=== PATIENT | male | born 1970 | race Caucasian/White ===

== ENCOUNTER 2021-05-04 13:06 | Emergency (ER) | payer BC, SELFPAY ==
[2021-05-04 13:07] VITALS: BP 112/83; PULSE 89; RESP 16; TEMP 36.4; O2SAT 98; BMI 29.0
[2021-05-04 13:54] LABS: Absolute Lymphocyte Count 1.26 X10^3/uL (0.83-4.51); Absolute Neutrophil Count 5.1 X10^3/uL (2.0-7.7); Basophil# 0.04 X10^3/uL; Basophil% 0.6 % (0-1); Eosinophil# 0.03 X10^3/uL; Eosinophils% 0.4 % (0-5); Hematocrit 55.1 % (40-54); Lymphocyte # 1.26 X10^3/ul (0.83-4.51); Mean Corp Hgb Conc 34.1 g/dL (32-36); Mean Corpuscular Hgb 30.7 pg (27.0-32.0); Mean Corpuscular Volume 89.9 fL (80-94); Mean Platelet Vol. 11.2 fl (6.2-12.0); Monocyte# 0.59 X10^3/uL; Monocyte% 8.4 % (0-10); NRBC Flagged by Analyzer 0 % (0-5); Neutrophil # 5.05 X10^3/uL (2.7-7.7); Neutrophil % 72.3 % (47-70); Platelet Count 206 K/mm3 (150-450); RBC Distribution Width SD 39.6 fl (35.1-43.9); Red Blood Count 6.13 M/mm3 (4.6-6.2)
[2021-05-04 13:57] LABS: Anion Gap 7 (5-15); BUN 10 mg/dL (7-18); Calcium,Total 9.2 mg/dL (8.5-10.1); Chloride 103 mmol/L (98-107); Creatinine, Serum 1.11 mg/dL (0.70-1.30); EST Glomerular Filtration Rate 75 mL/min (>60); Est Glom Filt Rate - Afr Amer 90 mL/min (>60); Estimated Creatinine Clearance 89.98 ml/min; Glucose 120 mg/dL (74-106); Potassium 3.7 mmol/L (3.5-5.1); Sodium Level 138 mmol/L (136-145)
[2021-05-04 14:00] LABS: Hemoglobin 18.8 g/dL (13.0-16.5)
--- NOTE | 2021-05-04 17:23 | CT_ITS ---
STUDY: CT Abdomen And Pelvis W/O Contrast Injection 05/04/2021 6:17 PM REASON FOR EXAM: Male, 51 years old. Technologist Notes Other, FATIGUE,WEAKNESS,NAUSEA llq pain TECHNIQUE: Transaxial images were obtained without oral contrast, and without intravenous contrast. Individualized dose optimization techniques were used for this CT. COMPARISON: None. FINDINGS: The visualized lung bases are unremarkable. The visualized portions of the heart are within normal limits. Normal liver. Normal gallbladder and extrahepatic biliary system. Normal spleen. Normal pancreas. Normal bilateral adrenal glands. No acute findings of the right kidney. No acute findings of the left kidney. Normal visualized stomach. Normal small intestine. Stool throughout the colon. There is non-visualization of the appendix. There are no acute findings of the abdominal aorta. Normal inferior vena cava. Subcentimeter mesenteric lymph nodes. Normal urinary bladder. There are prostatic calcifications. Normal abdominal wall. There are diffuse degenerative changes of the visualized lumbar spine. IMPRESSION: (NOT LISTED IN ORDER OF SIGNIFICANCE) There are no acute findings. Other findings as above. Electronically Signed: Juno Bautista MD at 18:19 EST , Service support , CT/Abdomen/Pelvis without Cont
[2021-05-04 17:49] VITALS: BP 135/78; PULSE 71; RESP 18; O2SAT 96
[2021-05-04 18:00] LABS: Bacteria 0 SEEN /hpf (None Seen); Mucous, Urine 0 SEEN /hpf (<or=2+); Red Blood Cells-Urine 0 SEEN /hpf (0-5); Squamous Epithelial Cells - UA 0 SEEN /hpf (0-5); White Blood Cells 0 SEEN /hpf (0-5)
[2021-05-04 18:01] LABS: Color, Urine Yellow (Yellow); Glucose, Dipstick Normal (Normal); Ketone-Dipstick Negative (Negative); Leukocyte Esterase-Dipstick Negative /ul (Negative); Nitrite-Dipstick Negative (Negative); Occult Blood-Urine Negative /ul (Negative); Protein-Dipstick Negative (Negative); Urine Bilirubin Dipstick Negative (Negative); Urine Clarity Clear (Clear); Urine Urobilinogen Normal (Normal)
--- NOTE | 2021-05-04 18:02 | ED.VIS.GI ---
HPI HPI - GI History of Present Illness Chief Complaint: Abd Pain Informant: patient Abdominal Pain/Flank Pain Onset: Days (3-4) Context: Gradual Onset Timing: Continuous Quality: Aching Location: LLQ Current Severity: Moderate Maximum Severity: Moderate Worsened by: Nothing Relieved by: Nothing Nausea/Vomiting/Emesis GI Symptom: Positive for Nausea; Negative for Vomiting Onset: Yesterday Diarrhea/Melena/Hematochezia GI Symptom: Positive for Diarrhea and Melena (today once, after taking a bunch of pepto bismol yesterday); Negative for Hematochezia Associated Symptoms Associated Symptoms: Positive for Dysuria (x 3 weeks); Negative for Frequency, Hematuria and Urgency Narrative Narrative: Patient presenting with abdominal pain in his left lower quadrant without radiation for the past 3 to 4 days, some nausea 1 point but not today, he is concerned that it is related to urethral dysuria that he has been having for the past 3 weeks since he was masturbating with a toy that he has subsequently discarded. He said he had some fevers a couple days ago when his abdominal pain started, but has had none since. Patient states not sexually active for the past 7 years or so. [facility] Medical History Fibromyalgia Rheumatoid arthritis Home Medications doxycycline monohydrate 100 mg PO BID #14 capsule 05/04/21 [Rx Last Taken Unknown] Allergy/AdvReac Type Severity Reaction Status Date / Time No Known Allergies Allergy Verified 05/04/21 13:10 Social History Smoking Status: Current every day smoker tobacco type: cigarettes ROS ROS ED Constitutional Constitutional ED: Denies chills or fever(s) Eyes Eyes: Denies change in vision or diplopia ENT ENT ED: Denies rhinorrhea or sore throat Cardiovascular Cardiovascular: Denies chest pain or palpitations Respiratory/Chest Respiratory/Chest: Denies cough or dyspnea Gastrointestinal Gastrointestinal: Reports abdominal pain and nausea; Denies diarrhea or vomiting Genitourinary Genitourinary ED: Reports dysuria; Denies hematuria Musculoskeletal Musculoskeletal: Reports arthralgias, back pain and other Details: Chronic low back pain unchanged ; Denies neck pain Integumentary Denies abscess or rash Neurologic Neurologic: Denies headache(s), paresthesias or weakness Psychiatric Psychiatric: Denies anxiety or suicidal thoughts EXAM Physical Exam Const Vital Signs: 05/04/21 13:07 05/04/21 17:49 Temperature 97.6 F L Temperature Source Temporal Pulse Rate 89 71 Respiratory Rate 16 18 Blood Pressure 112/83 H 135/78 H Blood Pressure Mean 92 97 Pulse Ox 98 96 Oxygen Delivery Method Room Air Room Air Positive well nourished and well developed Constitutional Narrative: Well-appearing in no distress General Appearance ED: well developed and NAD HEENT Reports moist mucous membranes normocephalic and atraumatic Eyes PERRL and EOMs intact bilaterally Neck full ROM and supple Resp normal respiratory effort and clear to auscultation bilaterally Cardio regular rate, regular rhythm and no murmurs GI non-distended GI Narrative: Point tender distal left lower quadrant, no guarding or rebound tenderness, no other areas of tenderness. Auscultation: normoactive bowel sounds Palpation: soft Back/Spine no CVA tenderness General Back: other FROM Extremity normal to inspection General Extremety ED: Negative for edema, pulses abnormal or tenderness General Extremity: Negative for edema or pulses abnormal Neuro oriented x3, CN's II-XII intact bilaterally and no sensory deficits noted Sensorium / Orientation: awake and alert Motor Exam: strength 5/5 throughout Skin no rashes or lesions noted and no wounds MDM MDM MDM Narrative Medical decision making narrative: Labs normal, Covid swab was sent due to his fevers, that is negative. He does not have any respiratory symptoms so I do not think he needs a PCR right now. His urinalysis shows no signs of any infection. Given that, his abdominal pain is probably unrelated, and he probably has a urethritis, for which I think it would be reasonable to put him on a week of doxy to see if that helps. He has had no discharge from his urethral meatus or testicular pain. Did do a CT of the abdomen and pelvis, no stone, no diverticulitis, no other acute abnormality. Reassured and discharged home with the doxycycline and advised to follow-up with primary care. Lab Data Attestation: I reviewed the patient's lab results. Labs: Laboratory Results - last 24 hr 05/04/21 05/04/21 05/04/21 13:25 13:30 13:30 WBC 7.0 RBC 6.13 Hgb 18.8 H* Hct 55.1 H MCV 89.9 MCH 30.7 MCHC 34.1 RDW Std Deviation 39.6 RDW Coeff of [place] 12.0 Plt Count 206 MPV 11.2 Immature Gran % (Auto) 0.300 Neut % (Auto) 72.3 H Lymph % (Auto) 18.0 L [place] % (Auto) 8.4 Eos % (Auto) 0.4 Baso % (Auto) 0.6 Absolute Neuts (auto) 5.1 Absolute Lymphs (auto) 1.26 Nucleated RBC % 0 [address] Path Review May foll Sodium 138 Potassium 3.7 Chloride 103 Carbon Dioxide 28.0 Anion Gap 7 BUN 10 Creatinine 1.11 Estim Creat Clear Calc 89.98 Est GFR (MDRD) Af Amer 90 Est GFR (MDRD) Non-Af 75 BUN/Creatinine Ratio 9.0 L Glucose 120 H Calcium 9.2 Urine Color Yellow Urine Clarity Clear Urine pH 6.0 Ur Specific [place] 1.010 Urine Protein Negative Urine Glucose (UA) Normal Urine Ketones Negative Urine Occult Blood Negative Urine Nitrite Negative Urine Bilirubin Negative Urine Urobilinogen Normal Ur Leukocyte Esterase Negative Urine RBC 0 SEEN Urine WBC 0 SEEN Ur Squamous Epith Cells 0 SEEN Urine Bacteria 0 SEEN Urine Mucus 0 SEEN Radiography Diagnostic Testing: Clinical Impression(s) from Imaging Studies Abdomen/Pelvis CT 05/04/21 17:23 Discharge Plan Triage Chief Complaint: Abd Pain ED Provider: Yoan Fish Dx/Rx/DC Orders Clinical Impression: Urethritis, nonspecific, Abdominal pain, LLQ Instructions: Urethritis in Men Prescriptions: New doxycycline monohydrate 100 MG capsule 100 mg PO BID Qty: 14 RF: 0 Primary Care Provider: NOT,DEFINED Referrals: Susi Lanza [NON-STAFF] - 3-5 Days if not improving NOT,DEFINED [Primary Care Provider] - Disposition Disposition: Home, Self Care
[2021-05-04] MEDS: Ondansetron ODT 4 MG Tablet PO (19:27)
[2021-05-06 10:00] LABS: Pathologist Review Reviewed
== END 2021-05-04 19:27 | disposition home or self-care (01) ==
PROVIDERS: Emergency Provider Emergency Medicine; Visit Provider Emergency Medicine
DX: N34.2 Other urethritis (principal); M06.9 Rheumatoid arthritis, unspecified; R10.32 Left lower quadrant pain; M79.7 Fibromyalgia; F17.210 Nicotine dependence, cigarettes, uncomplicated
CPT/HCPCS: 74176; 80048; 81001; 85025; 87426; 99284; A4216

== ENCOUNTER 2021-05-10 19:58 | Emergency (ER) | payer BC, SELFPAY ==
[2021-05-10 19:58] VITALS: BP 133/102; PULSE 90; RESP 18; TEMP 36.2; O2SAT 99; BMI 27.3
--- NOTE | 2021-05-10 21:49 | EKG12_ITS ---
Test Reason : DYSRHYTHMIA Blood Pressure : / mmHG Vent. Rate : 063 BPM Atrial Rate : 063 BPM P-R Int : 152 ms QRS Dur : 086 ms QT Int : 388 ms P-R-T Axes : 034 011 029 degrees QTc Int : 397 ms Normal sinus rhythm Normal ECG Confirmed by JAMEY GALVEZ, MARTIN ([id number]), editor managing newspaper EMILIA CHOWDHURY ([id number]) on 05/11/2021 1:40:56 PM Referred By: TL Confirmed By:MARTIN CONCEPCION MD
--- NOTE | 2021-05-10 21:51 | EDS_ITS ---
HPI History of Present Illness Chief Complaint: General Illness Informant: patient Narrative Narrative: Patient presents today stating throughout the day felt intermittent dizziness with increasing warmth. No vomiting. He was seen in the ED 6 days ago he states had diarrhea prior to that 2 days ago with black stools however some Pepto-Bismol. He states had a work-up with CAT scan and labs placed on doxycycline. He is unclear for why. He states diarrhea has subsided. He is tolerating p.o. intake since yesterday. Denies cough. He states there is foamy urine at that time. However there is no infection. He follow-up with urgent care 2 days later he states he is taken off the doxycycline. History of rheumatoid arthritis and fibromyalgia he is not on any current medications. [facility] does not have a PCP. Denies chest or abdominal pain. Evaluation of the records, noted he was COVID-negative he had a CAT scan that was negative lab test urine test negative. He was placed on doxycycline for urethritis concerns due to noted history of masturbation with a toy that he discarded. He did not disclose this to me initially. [facility] Medical History Abdominal pain, right upper quadrant Fibromyalgia Rheumatoid arthritis Weight loss Weight loss Home Medications levofloxacin 750 mg tablet 750 mg PO DAILY #10 tab 05/09/21 [Rx Last Taken Unknown] Allergy/AdvReac Type Severity Reaction Status Date / Time No Known Allergies Allergy Verified 05/10/21 20:01 Social History Smoking Status: Current every day smoker tobacco type: cigarettes ROS ROS ED Constitutional Constitutional ED: Denies chills, fever(s) or sweats Eyes Eyes: Denies change in vision ENT ENT ED: Denies dysphagia or sore throat Cardiovascular Cardiovascular: Denies chest pain, leg edema, palpitations or racing heartbeat Respiratory/Chest Respiratory/Chest: Denies cough, dyspnea or dyspnea on exertion Gastrointestinal Gastrointestinal: Denies abdominal pain, diarrhea, nausea or vomiting Genitourinary Genitourinary ED: Denies dysuria, hematuria or urinary frequency Musculoskeletal Musculoskeletal: Denies back pain, extremity pain or neck pain Integumentary Denies rash or wounds Neurologic Neurologic: Denies headache(s), paresthesias or weakness EXAM Physical Exam Const Vital Signs: 05/10/21 19:58 05/10/21 21:38 Temperature 97.1 F L Temperature Source Temporal Pulse Rate 90 Respiratory Rate 18 Respiratory Effort Normal Non-Labored Respiratory Pattern Normal Blood Pressure 133/102 H Blood Pressure Mean 112 Pulse Ox 99 Oxygen Delivery Method Room Air Positive well nourished and well developed General Appearance ED: well developed and NAD HEENT Reports moist mucous membranes normocephalic and atraumatic Eyes PERRL, EOMs intact bilaterally and conjunctivae normal General Eye ED: Yes normal appearance of both eyes Neck no lymphadenopathy and supple General: Negative for tenderness Chest Wall Chest: Negative for tenderness Resp normal respiratory effort and normal air movement Effort and Inspection: symmetric chest movement; Negative for respiratory distress Cardio regular rate, regular rhythm and no murmurs Peripheral Pulses: pulses 2+ throughout GI normal to inspection, nondistended, normoactive bowel sounds and non-tender Palpation: Negative for guarding or rebound tenderness present Back/Spine no CVA tenderness and no thoracic nor lumbar tenderness Extremity normal to inspection General Extremety ED: Negative for edema or tenderness General Extremity: Negative for edema Neuro oriented x3 and no sensory deficits noted Sensorium / Orientation: awake and alert Skin no rashes or lesions noted and no wounds MDM MDM MDM Narrative Medical decision making narrative: Patient nontoxic vital signs stable. Vague symptoms of weakness and subjective fevers with stating he feels hot. Denies any current cough his diarrhea is improved. EKG is normal basic labs all normal. Urine also negative. Discussed with patient his last visit and the reason for his doxycycline. He had fever headache and now reports there were changes in taste. Discussed possibility of false negative obtaining a PCR for further evaluation which is pending. He agrees. Pulse ox is 99%. Discussed continue oral hydration at home. All questions answered. Patient is being discharged under pandemic conditions under declared global, national and state disaster activation, with limited medical resources. Patient and community understands this. Results discussed in layman's terms to the patient satisfaction. All questions answered in layman's terms. Patient understands importance of follow-up care as directed. Patient has been instructed to return to the ED immediately if new symptoms, problems, or questions occur. We mutually agree with the plan of disposition. The patient understand that they may call or return with any questions or concerns at any time. Lab Data Attestation: I reviewed the patient's lab results. Labs: Laboratory Results - last 24 hr 05/10/21 05/10/21 05/10/21 22:00 22:09 22:09 WBC 10.1 RBC 5.59 Hgb 17.3 H Hct 49.9 MCV 89.3 MCH 30.9 MCHC 34.7 RDW Std Deviation 39.8 RDW Coeff of [place] 12.2 Plt Count 272 MPV 10.9 Immature Gran % (Auto) 0.600 Neut % (Auto) 64.3 Lymph % (Auto) 26.2 [place] % (Auto) 6.7 Eos % (Auto) 1.7 Baso % (Auto) 0.5 Absolute Neuts (auto) 6.5 Absolute Lymphs (auto) 2.64 Nucleated RBC % 0 Sodium 140 Potassium 3.9 Chloride 107 Carbon Dioxide 26.0 Anion Gap 7 BUN 10 Creatinine 1.09 Estim Creat Clear Calc 91.63 Est GFR (MDRD) Af Amer 92 Est GFR (MDRD) Non-Af 76 BUN/Creatinine Ratio 9.2 L Glucose 94 Calcium 8.7 Urine Color Straw Urine Clarity Clear Urine pH 6.5 Ur Specific [place] 1.005 Urine Protein Negative Urine Glucose (UA) Normal Urine Ketones Negative Urine Occult Blood Negative Urine Nitrite Negative Urine Bilirubin Negative Urine Urobilinogen Normal Ur Leukocyte Esterase Negative Urine RBC 0 SEEN Urine WBC 0 SEEN Ur Squamous Epith Cells 0 SEEN Urine Bacteria 0 SEEN Urine Mucus 0 SEEN EKG Initial EKG: Attestation: I personally reviewed and interpreted this EKG as follows: Comments: Sinus rate of 63, no ST or T wave changes. QTc 397. Discharge Plan Triage Chief Complaint: General Illness Other Complaint: Dizziness ED Provider: Carloz Estrada Dx/Rx/DC Orders Clinical Impression: Weakness, Diarrhea Instructions: Coronavirus Disease 2019 (COVID-19): Overview, ED Weakness (Un certain Cause) Prescriptions: No Action levofloxacin 750 mg tablet 750 mg PO DAILY Qty: 10 RF: 0 Primary Care Provider: Care Physician,No Primary Referrals: Neelam Diaz MD [STAFF PHYSICIAN] - 5-7 Days Care Physician,No Primary [Primary Care Provider] - Activity Restrictions/Additional Instructions: EKG repeat labs and urine negative. COVID PCR obtained and pending. Disposition Disposition: Home, Self Care
[2021-05-10 22:18] LABS: Absolute Lymphocyte Count 2.64 X10^3/uL (0.83-4.51); Absolute Neutrophil Count 6.5 X10^3/uL (2.0-7.7); Basophil# 0.05 X10^3/uL; Basophil% 0.5 % (0-1); Eosinophil# 0.17 X10^3/uL; Eosinophils% 1.7 % (0-5); Hematocrit 49.9 % (40-54); Hemoglobin 17.3 g/dL (13.0-16.5); Lymphocyte # 2.64 X10^3/ul (0.83-4.51); Lymphocyte % 26.2 % (19-41); Mean Corp Hgb Conc 34.7 g/dL (32-36); Mean Corpuscular Hgb 30.9 pg (27.0-32.0); Mean Corpuscular Volume 89.3 fL (80-94); Mean Platelet Vol. 10.9 fl (6.2-12.0); Monocyte# 0.67 X10^3/uL; Monocyte% 6.7 % (0-10); NRBC Flagged by Analyzer 0 % (0-5); Neutrophil # 6.48 X10^3/uL (2.7-7.7); Neutrophil % 64.3 % (47-70); Platelet Count 272 K/mm3 (150-450); RBC Distribution Width CV 12.2 % (11.6-14.6); RBC Distribution Width SD 39.8 fl (35.1-43.9); Red Blood Count 5.59 M/mm3 (4.6-6.2); White Blood Count 10.1 K/mm3 (4.4-11.0)
[2021-05-10 23:01] LABS: Bacteria 0 SEEN /hpf (None Seen); Mucous, Urine 0 SEEN /hpf (<or=2+); Red Blood Cells-Urine 0 SEEN /hpf (0-5); Squamous Epithelial Cells - UA 0 SEEN /hpf (0-5); White Blood Cells 0 SEEN /hpf (0-5)
[2021-05-10 23:02] LABS: Color, Urine Straw (Yellow); Glucose, Dipstick Normal (Normal); Ketone-Dipstick Negative (Negative); Leukocyte Esterase-Dipstick Negative /ul (Negative); Nitrite-Dipstick Negative (Negative); Occult Blood-Urine Negative /ul (Negative); Protein-Dipstick Negative (Negative); Specific Gravity, Urine 1.005 (1.002-1.030); Urine Bilirubin Dipstick Negative (Negative); Urine Clarity Clear (Clear); Urine Urobilinogen Normal (Normal); Urine pH 6.5 (5.0 - 8.0)
[2021-05-10 23:03] LABS: Anion Gap 7 (5-15); BUN 10 mg/dL (7-18); BUN/Creat Ratio 9.2 RATIO (10-20); Calcium,Total 8.7 mg/dL (8.5-10.1); Chloride 107 mmol/L (98-107); Creatinine, Serum 1.09 mg/dL (0.70-1.30); EST Glomerular Filtration Rate 76 mL/min (>60); Est Glom Filt Rate - Afr Amer 92 mL/min (>60); Estimated Creatinine Clearance 91.63 ml/min; Glucose 94 mg/dL (74-106); Potassium 3.9 mmol/L (3.5-5.1); Sodium Level 140 mmol/L (136-145)
== END 2021-05-11 | disposition home or self-care (01) ==
PROVIDERS: Emergency Provider Emergency Medicine; Visit Provider Emergency Medicine
DX: R42 Dizziness and giddiness (principal); R53.1 Weakness; F17.210 Nicotine dependence, cigarettes, uncomplicated
CPT/HCPCS: 80048; 81001; 85025; 87635; 93005; 99283; J7030; U0003; U0005

== ENCOUNTER 2021-05-16 09:40 | Outpatient (CLI) | payer BC, SELFPAY ==
[2021-05-16 10:14] LABS: Absolute Lymphocyte Count 1.57 X10^3/uL (0.83-4.51); Absolute Neutrophil Count 7.4 X10^3/uL (2.0-7.7); Basophil# 0.03 X10^3/uL; Basophil% 0.3 % (0-1); Hematocrit 52.1 % (40-54); Lymphocyte # 1.57 X10^3/ul (0.83-4.51); Mean Corp Hgb Conc 34.5 g/dL (32-36); Mean Corpuscular Hgb 31.6 pg (27.0-32.0); Mean Corpuscular Volume 91.4 fL (80-94); Mean Platelet Vol. 11.8 fl (6.2-12.0); Monocyte% 7.1 % (0-10); NRBC Flagged by Analyzer 0 % (0-5); Neutrophil # 7.38 X10^3/uL (2.7-7.7); Neutrophil % 75.2 % (47-70); Platelet Count 242 K/mm3 (150-450); RBC Distribution Width CV 12.5 % (11.6-14.6); RBC Distribution Width SD 42.2 fl (35.1-43.9); White Blood Count 9.8 K/mm3 (4.4-11.0)
[2021-05-16 10:51] LABS: AST(SGOT) 15 U/L (15-37); Alanine Aminotransfer ALT/SGPT 30 U/L (16-61); Albumin, Serum 3.8 g/dL (3.2-5.0); Alkaline Phosphatase 109 U/L (45-117); Anion Gap 7 (5-15); BUN 10 mg/dL (7-18); BUN/Creat Ratio 8.6 RATIO (10-20); Calcium,Total 8.9 mg/dL (8.5-10.1); Chloride 104 mmol/L (98-107); Creatinine, Serum 1.16 mg/dL (0.70-1.30); EST Glomerular Filtration Rate 71 mL/min (>60); Est Glom Filt Rate - Afr Amer 86 mL/min (>60); Globulin 3.7 g/dL (2.2-4.2); Glucose 90 mg/dL (74-106); Protein, Total 7.5 g/dL (6.4-8.2); Sodium Level 138 mmol/L (136-145); Thyroid Stim Hormone (TSH) 1.38 uIU/mL (0.358-3.74)
[2021-05-16 14:31] LABS: Pathologist Review Reviewed
== END 2021-05-16 23:59 | disposition short-term general hospital (02) ==
LOC: MFPLAB 09:44
PROVIDERS: PCP Family Medicine; Referring Provider Family Medicine; Visit Provider Family Medicine
DX: R53.83 Other fatigue (principal)
CPT/HCPCS: 36415; 80053; 84403; 84443; 85025; 86769

== ENCOUNTER → 2024-01-22 | Outpatient (CLI) | payer OTHER, SELFPAY ==
[2024-01-22 16:21] LABS: Mucous, Urine 0 SEEN /hpf (<or=2+); Red Blood Cells-Urine 0 SEEN /hpf (0-5)
[2024-01-22 16:50] LABS: Color, Urine Yellow (Yellow); Glucose, Dipstick Normal (Normal); Ketone-Dipstick Negative (Negative); Leukocyte Esterase-Dipstick 25 /ul (Negative); Nitrite-Dipstick Negative (Negative); Occult Blood-Urine Negative /ul (Negative); Protein-Dipstick 15 mg/dl (Negative); Urine Bilirubin Dipstick Negative (Negative); Urine Clarity Clear (Clear); Urine Urobilinogen Normal (Normal)
[2024-01-22 16:59] LABS: Bacteria 1+ /hpf (None Seen); Squamous Epithelial Cells - UA 0-5 SEEN /hpf (0-5); White Blood Cells 0-5 SEEN /hpf (0-5)
== END | disposition home or self-care (01) ==
PROVIDERS: PCP Family Medicine; Referring Provider Physician Assistant; Visit Provider Physician Assistant
DX: J02.0 Streptococcal pharyngitis (principal); A49.2 Hemophilus influenzae infection, unspecified site; R30.0 Dysuria
CPT/HCPCS: 81001; 87070; 87077; 87086; 87088; 87491; 87591